=== PATIENT | female | born 1995 | race Caucasian/White ===

== ENCOUNTER 2018-12-20 15:41 | Emergency (ER) | payer OTHER ==
[2018-12-20 16:07] LABS: APPEARANCE,URINE CLEAR; BILIRUBIN,URINE NEGATIVE (NEGATIVE); COLOR,URINE YELLOW; GLUCOSE, URINE NEGATIVE (NEGATIVE); KETONES,URINE NEGATIVE (NEGATIVE); LEUKOCYTE ESTERASE,URINE NEGATIVE (NEGATIVE); NITRITE,URINE NEGATIVE (NEGATIVE); PROTEIN,URINE NEGATIVE (NEGATIVE); URINE SPECIFIC GRAVITY 1.006; UROBILINOGEN,URINE NEGATIVE mg/dL (<2.0)
--- NOTE | 2018-12-20 19:09 | ER Document Report ---
ED Medical Screen (RME) - General Chief Complaint: Abdominal Pain Stated Complaint: ABDOMINAL PAIN Time Seen by Provider: 12/20/18 18:57 Mode of Arrival: Ambulatory Information source: Patient Notes: 23-year-old female presents with complaint of abdominal pain, abdominal pressure, abdominal bloating. Patient was seen twice at [facility] over the weekend where she underwent a CT scan of the abdomen and pelvis with IV contrast as well as a transabdominal ultrasound and transvaginal ultrasound. She was told that she had a 15 cm cyst on her uterus and a urinary tract infection. Patient reports progressively worsening pain despite Percocet use. Patient was referred to urology. Request for medical records was sent. I have greeted and performed a rapid initial assessment of this patient. A comprehensive ED assessment and evaluation of the patient, analysis of test results and completion of medical decision making process we will be contacted by additional ED providers. PHYSICAL EXAMINATION: Vital signs reviewed GENERAL: Well-appearing, well-nourished and in no acute distress. LUNGS: No respiratory distress Musculoskeletal: Normal range of motion NEUROLOGICAL: Normal speech, normal gait. PSYCH: Normal mood, normal affect. SKIN: Warm, Dry, normal turgor, no rashes or lesions noted. TRAVEL OUTSIDE OF THE [place] IN LAST 30 DAYS: No - HPI Onset: Other Onset/Duration: Gradual Quality of pain: Pressure Severity: Moderate Associated Symptoms: Abdominal pain, Nausea Exacerbated by: Denies Relieved by: Denies Similar symptoms previously: Yes Recently seen / treated by doctor: Yes - Related Data Smoking: Non-smoker, Secondhand Drug Abuse: None Allergies/Adverse Reactions: No Known Allergies Allergy (Verified 12/20/18 18:57) Physical Exam - Vital signs Vitals: Temp Pulse Resp BP Pulse Ox 98.9 F 84 16 118/74 99 12/20/18 15:48 12/20/18 15:48 12/20/18 15:48 12/20/18 15:48 12/20/18 15:48 Course - Vital Signs Vital signs: Temp Pulse Resp BP Pulse Ox 98.9 F 84 16 118/74 99 12/20/18 15:48 12/20/18 15:48 12/20/18 15:48 12/20/18 15:48 12/20/18 15:48 - Laboratory Laboratory results interpreted by me: 12/20/18 15:45 Urine Blood SMALL H
[2018-12-20] MEDS ORDERED: MORPHINE SULFATE 10 MG/ML INJ IM ONE (19:22)
[2018-12-20 21:38] VITALS: BP 125/95
--- NOTE | 2018-12-20 22:01 | RADIOLOGY REPORT (SQ) ---
US PELVIS HISTORY: Pelvic pain. COMPARISON: None. TECHNIQUE: Grayscale, color Doppler, and spectral Doppler ultrasound images of the pelvis were obtained. FINDINGS: The uterus is anteverted and measures 6.3 x 2.7 cm. The cervix measures 1.8 cm in length. The endometrium is 9 mm in thickness. The right ovary measures 4.4 x 2.5 x 2.2 cm and contains normal follicles. The left ovary measures 2.6 x 2.0 x 1.9 cm and contains a 2.2 x 1.7 x 1.2 cm anechoic cyst. Both ovaries contain normal color Doppler blood flow. There is mild pelvic free fluid in the posterior cul-de-sac. IMPRESSION: 2.2 cm simple left ovarian cyst. No follow-up imaging is recommended. Reference: Radiology 2010 Sep;256(0):943-33
[2018-12-20] MEDS ORDERED: OXYCODONE-ACETAMINOPHEN 5-325 MG TABLET PO ONE (22:30)
[2018-12-20] MEDS ORDERED: DOXYCYCLINE HYCLATE 100 MG TABLET PO ONE (22:30)
--- NOTE | 2018-12-20 22:37 | ER Document Report ---
ED General - General Chief Complaint: Abdominal Pain Stated Complaint: ABDOMINAL PAIN Time Seen by Provider: 12/20/18 18:57 Mode of Arrival: Ambulatory TRAVEL OUTSIDE OF THE [place] IN LAST 30 DAYS: No - HPI Notes: Patient is a 23-year-old female that presents to the emergency department for chief complaint of pelvic pain. Patient reports 2 days ago she started having pain in her lower abdomen that radiates down into her vagina. She reports vaginal discharge and nausea. She states she had a fever of 100.2 max over the last few days. Patient was seen at [facility] on Thursday and Thursday for the symptoms. She reports having a complete workup and being told that she has a urinary tract infection and ovarian cyst. Patient reports confusion regarding her diagnoses and states they did not tell her much information. When she was not feeling better today she came to the ED for reevaluation and second opinion. She denies new symptoms today compared to yesterday when she was evaluated. Past Medical History: Negative Past Surgical History: Negative Social History: Denies tobacco and drug use Family History: Reviewed and noncontributory for presenting illness Allergies: Reviewed, see documented allergy list. REVIEW OF SYSTEMS: CONSTITUTIONAL : fever No chills No diaphoresis No recent illness EENT: No vision changes No congestion No sore throat CARDIOVASCULAR: No chest pain No palpitations RESPIRATORY: No shortness of breath No cough No difficulty breathing GASTROINTESTINAL: abdominal pain nausea No vomiting No diarrhea GENITOURINARY: No dysuria hematuria Vaginal discharge No difficulty urinating MUSCULOSKELETAL: No back pain No leg pain No arm pain SKIN: No rashes No lesions LYMPHATIC: No swollen, enlarged glands. NEUROLOGICAL: No lightheadedness No headache No weakness No paresthesias PSYCHIATRIC: No anxiety No depression PHYSICAL EXAMINATION: Vital signs reviewed, nursing noted reviewed. GENERAL: Well-appearing, well-nourished and in no acute distress. HEAD: Atraumatic, normocephalic. EYES: Eyes appear normal, extraocular movements intact, sclera anicteric, conjunctiva are normal. ENT: nares patent, oropharynx clear without exudates. Moist mucous membranes. NECK: Normal range of motion, supple without lymphadenopathy LUNGS: Breath sounds clear to auscultation bilaterally and equal. No wheezes rales or rhonchi. HEART: Regular rate and rhythm without murmurs ABDOMEN: Soft, mild suprapubic tenderness, no right lower quadrant tenderness normoactive bowel sounds. No rebound, guarding, or rigidity. No masses appreciated. EXTREMITIES: Nontender, good range of motion, no pitting or edema. NEUROLOGICAL: No focal neurological deficits. Moves all extremities sponta neously Motor and sensory grossly intact on exam. PSYCH: Normal mood, normal affect. SKIN: Warm, Dry, normal turgor, no rashes or lesions noted on exposed skin - Related Data Allergies/Adverse Reactions: No Known Allergies Allergy (Verified 12/20/18 18:57) Past Medical History - General Information source: Patient - Social History Smoking Status: Never Smoker Frequency of alcohol use: None Drug Abuse: None Family History: Reviewed & Not Pertinent Patient has suicidal ideation: No Patient has homicidal ideation: No Renal/ Medical History: Denies: Hx Peritoneal Dialysis Past Surgical History: Reports: Hx Orthopedic Surgery - acl repair latha knees Physical Exam - Vital signs Vitals: Temp Pulse Resp BP Pulse Ox 98.9 F 84 16 118/74 99 12/20/18 15:48 12/20/18 15:48 12/20/18 15:48 12/20/18 15:48 12/20/18 15:48 Course - Re-evaluation Re-evalutation: 12/20/18 22:34 Vitals reviewed. Nursing notes reviewed. Her records from [facility] yesterday were obtained and reviewed. She had CT scan of her abdomen and pelvis with contrast. The CT scan showed questionable adnexal cyst. She also had a pe lvic ultrasound which showed left ovarian cyst. Patient did have some inflammation of her cervix seen on the CT scan as well. She had a negative wet mount and NGHIA. GC and Chlamydia results are pending. She had normal CBC, CMP and lipase. Today her urinalysis shows hematuria with no acute infection. Repeat ultrasound shows a left 2.2 cm cyst with no ovarian torsion. There is some free fluid in her pelvis which may be related to recent ruptured cyst. Patient abdominal exam is benign with some mild suprapubic tenderness. She is explaining exquisite pain during the transvaginal ultrasound that made her sweat. 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 I did explain that PID is a likely possibility since she has cervical inflammation on CT and extreme pain with cervical movement during ultrasound. Patient had a pelvic exam performed yesterday and does not wish to have a repeat pelvic exam today. I did offer Rocephin and azithromycin to prophylax gonorrhea and chlamydia which she has declined. I advised she contact [facility] to get her GC and Chlamydia results. Since she had such an extensive workup yesterday including blood work and CT scans and does not have any new symptoms today I do not see the need for repeat labs. Patient will be started on doxycycline for likely PID and was advised to stop taking the Keflex since her urinalysis does not show any UTI. She was advised to follow with [facility] which they will obtain through her insurance. Patient was counseled on return precautions and verbalized understanding. She is stable at discharge. Laboratory 12/20/18 12/20/18 15:45 19:15 Urine Color YELLOW Urine Appearance CLEAR Urine pH 5.0 Ur Specific [place] 1.006 Urine Protein NEGATIVE Urine Glucose (UA) NEGATIVE Urine Ketones NEGATIVE Urine Blood SMALL H Urine Nitrite NEGATIVE Urine Bilirubin NEGATIVE Urine Urobilinogen NEGATIVE Ur Leukocyte Esterase NEGATIVE Urine WBC (Auto) 1 Urine RBC (Auto) 1 Squamous Epi Cells Auto 1 Urine Mucus (Auto) RARE Urine Ascorbic Acid NEGATIVE Urine HCG, Qual NEGATIVE Transvaginal US 12/20/18 19:10 IMPRESSION: 2.2 cm simple left ovarian cyst. No follow-up imaging is recommended. Reference: Radiology 2010 Jun;256(3):943-54 - Vital Signs Vital signs: Temp Pulse Resp BP Pulse Ox 98.1 F 84 16 125/95 H 98 12/20/18 21:36 12/20/18 15:48 12/20/18 21:36 12/20/18 21:36 12/20/18 21:36 - Laboratory Laboratory results interpreted by me: 12/20/18 15:45 Urine Blood SMALL H Discharge - Discharge Clinical Impression: Pelvic inflammatory disease, Left ovarian cyst Hematuria Qualifiers: Hematuria type: asymptomatic microscopic Qualified Code(s): R31.21 - Asymptomatic microscopic hematuria Condition: Stable Disposition: HOME, SELF-CARE Instructions: Ovarian Cyst ([facility]), Pelvic Inflammatory Disease ([facility]) Additional Instructions: Please return to the emergency department if you have any worsening, or concern of your symptoms. Please return to the emergency department if you develop chest pain, difficulty breathing, severe abdominal pain, or ongoing vomiting. Please follow-up with your primary care physician in 2-3 days and any other recommended physicians. If prescribed, take all medications as directed. If you have any questions or concerns do not hesitate to return the emergency department for evaluation. Stop taking the Keflex and begin taking the doxycycline tomorrow morning. Follow-up with gynecology. Contact [facility] for your gonorrhea and Chlamydia test results Prescriptions: Doxycycline Hyclate 100 mg PO BID #14 capsule
== END 2018-12-20 22:46 | disposition home or self-care (01) ==
LOC: ER 15:41
DX: N73.9 Female pelvic inflammatory disease, unspecified (principal); N83.202 Unspecified ovarian cyst, left side; R31.21 Asymptomatic microscopic hematuria; R10.30 Lower abdominal pain, unspecified; R10.2 Pelvic and perineal pain; R11.0 Nausea
CPT/HCPCS: 99284; 96372; 81025; 81001; 76830; 93976; J2270